=== PATIENT | male | born 1950 | race Caucasian/White ===

== ENCOUNTER 2017-09-14 09:02 | Inpatient (IN) | payer MEDICARE ==
[~2017-09-14] VITALS: Ht 185.4 cm; Wt 144.8 kg
[2017-11-29] VITALS (12 sets, daily range): BP systolic 130–180; BP diastolic 40–81; PULSE 36–61; TEMP 97.6–98.6
[2017-11-29] MEDS ORDERED: ASPI325T6 PO (06:06)
[2017-11-29] MEDS ORDERED: LASIX 40MG TABL40 MG PO (06:09)
[2017-11-29] MEDS ORDERED: XARELTO20 MG PO (06:09)
[2017-11-29] MEDS ORDERED: CORDARONE200 MG/TAB PO (06:09)
[2017-11-29] MEDS ORDERED: FLOMAX 0.40.4 MG/CAP PO (06:10)
[2017-11-29] MEDS ORDERED: LIPITOR 40MG TA40 MG PO (06:10)
[2017-11-29] MEDS ORDERED: VALSART/HCTZ TAB 160 PO (06:10)
[2017-11-29] MEDS ORDERED: FORT1000TA PO (06:11)
[2017-11-29] MEDS ORDERED: GLUCOTROL 5M5 MG/TAB PO (06:11)
[2017-11-29] MEDS ORDERED: POTASSIUM BICARB PO (06:12)
[2017-11-29] MEDS ORDERED: [UNRECOGNIZED DRUG - OTHER] PO (06:12)
[2017-11-29] MEDS ORDERED: ASPIRIN 32325 MG/TAB PO (06:12)
[2017-11-29] MEDS ORDERED: IBU800 M1 PO (06:13)
[2017-11-29] MEDS ORDERED: DIOVAN/HCT 12.51 TAB PO (06:16)
[2017-11-30] VITALS (8 sets, daily range): BP systolic 127–176; BP diastolic 57–86; PULSE 52–95; TEMP 98.2–99.5
[2017-11-30 06:43] LABS: HEMOGLOBIN 12.3 g/dl (13.5-18.0)
[2017-11-30 06:49] LABS: HEMATOCRIT 35.9 % (42.0-52.0)
[2017-12-01] VITALS (7 sets, daily range): BP systolic 90–151; BP diastolic 49–77; PULSE 63–125; TEMP 98.4–99.9
[2017-12-01 10:40] LABS: BASO % 0.2 % (0.0-2.0); EOS # 0.1 (0.0-0.7); EOS % 0.9 % (0-4.0); GRAN # 9.1 (1.4-6.5); GRAN % 80.7 % (42.2-75.2); HEMOGLOBIN 12.9 g/dl (13.5-18.0); LYMPH # 1.2 (1.2-3.4); LYMPH % 10.8 % (20.0-51.0); MEAN CELL VOLUME 93 fl (80.0-100.0); MEAN CORPUSCULAR HEMOGLOBIN 33 pg (27.0-31.0); MEAN CORPUSCULAR HGB CONC 35 g/dl (33.0-37.0); MEAN PLATELET VOLUME 9.1 fl (7.4-10.4); MONO # 0.8 (0.1-0.6); PLATELET COUNT 210 K/mm3 (130-400); RED BLOOD COUNT 3.95 M/mm3 (4.20-5.60); REDCELL DISTRIBUTION WIDTH-CV 13.2 % (11.5-14.5)
[2017-12-01 10:41] LABS: HEMATOCRIT 36.9 % (42.0-52.0)
[2017-12-01 10:49] LABS: CALCIUM 8.7 mg/dL (8.4-10.2); CREATININE, serum 0.89 mg/dL (0.66-1.25); MAGNESIUM 1.7 mg/dL (1.6-2.3); POTASSIUM 3.3 mmol/L (3.4-5.0)
[2017-12-02 03:42] VITALS: BP 135/44; PULSE 71; TEMP 98.9
[2017-12-02 06:39] LABS: BASO % 0.3 % (0.0-2.0); EOS # 0.3 (0.0-0.7); EOS % 2.6 % (0-4.0); GRAN % 76.7 % (42.2-75.2); HEMOGLOBIN 11.6 g/dl (13.5-18.0); LYMPH # 1.3 (1.2-3.4); LYMPH % 12.2 % (20.0-51.0); MEAN CELL VOLUME 95 fl (80.0-100.0); MEAN CORPUSCULAR HEMOGLOBIN 32 pg (27.0-31.0); MEAN CORPUSCULAR HGB CONC 34 g/dl (33.0-37.0); MEAN PLATELET VOLUME 9.5 fl (7.4-10.4); MONO # 0.8 (0.1-0.6); MONO % 7.7 % (1.7-9.3); PLATELET COUNT 214 K/mm3 (130-400); RED BLOOD COUNT 3.59 M/mm3 (4.20-5.60); REDCELL DISTRIBUTION WIDTH-CV 13.2 % (11.5-14.5)
[2017-12-02 06:43] LABS: HEMATOCRIT 34.2 % (42.0-52.0)
[2017-12-02 07:01] LABS: CALCIUM 8.5 mg/dL (8.4-10.2); CREATININE, serum 0.89 mg/dL (0.66-1.25); MAGNESIUM 1.9 mg/dL (1.6-2.3); POTASSIUM 3.3 mmol/L (3.4-5.0)
[2017-12-02 07:44] VITALS: BP 141/60; PULSE 75; TEMP 99.7
[2017-12-02] MEDS ORDERED: DIOVAN 160MG160 MG PO (09:41)
[2017-12-02] MEDS ORDERED: K-DUR20 MEQ PO (09:42)
== END 2017-12-02 11:53 | disposition home or self-care (01) | DRG 470 ==
LOC: JCC 11-29 05:05
PROVIDERS: Orthopaedic Surgery; Physician Assistant
PROC: 0SRC0J9 Replacement of Right Knee Joint with Synthetic Substitute, Cemented, Open Approach (ICD-10-PCS; principal; 2017-11-29 07:30)
DX: M17.11 Unilateral primary osteoarthritis, right knee (principal); Z68.41 Body mass index [BMI] 40.0-44.9, adult; E66.01 Morbid (severe) obesity due to excess calories; E87.6 Hypokalemia; I48.91 Unspecified atrial fibrillation; E11.9 Type 2 diabetes mellitus without complications; E78.5 Hyperlipidemia, unspecified; I10 Essential (primary) hypertension; Z79.01 Long term (current) use of anticoagulants
CPT/HCPCS: 99223-AI; 99232-AI; A9284; C1713; C1776; J0690; J2250; J2704; J3260; J3475; J7030

== ENCOUNTER → 2017-11-22 | Outpatient (CLI) | payer MEDICARE ==
[2017-11-22 13:45] LABS: HIV 1/2 Antibodies Non-Reactive; HIV-1p24 Antigen Non-Reactive
== END ==
LOC: COL.LAB 12:14
PROVIDERS: Orthopaedic Surgery
DX: Z01.812 Encounter for preprocedural laboratory examination (principal); M17.11 Unilateral primary osteoarthritis, right knee

== ENCOUNTER 2018-04-22 12:04 | Inpatient (IN) | payer MEDICARE ==
[~2018-04-22] VITALS: Ht 185.4 cm; Wt 142.8 kg
[~2018-04-22 12:04] MED LIST: ASPI325T6 PO; ASPIRIN 32325 MG/TAB PO; CORDARONE200 MG/TAB PO; DIOVAN 160MG160 MG PO; DIOVAN/HCT 12.51 TAB PO; FLOMAX 0.40.4 MG/CAP PO; FORT1000TA PO; GLUCOTROL 5M5 MG/TAB PO; IBU800 M1 PO; K-DUR20 MEQ PO; LASIX 40MG TABL40 MG PO; LIPITOR 40MG TA40 MG PO; POTASSIUM BICARB PO; VALSART/HCTZ TAB 160 PO; XARELTO20 MG PO; [UNRECOGNIZED DRUG - OTHER] PO
[2018-07-04] MEDS ORDERED: K-DUR20 MEQ PO (08:32)
[2018-07-04] MEDS ORDERED: DIOVAN 160MG160 MG PO (08:34)
[2018-07-04] MEDS ORDERED: IBU800 M1 PO (08:38)
[2018-07-04] MEDS ORDERED: NITROSTAT0.4 MG/TAB SL (11:47)
[2018-07-04] MEDS ORDERED: ASPIRIN 81M81 MG/TA2 PO (11:48)
[2018-12-06] VITALS (11 sets, daily range): BP systolic 131–169; BP diastolic 59–79; PULSE 56–82; TEMP 97.6–98.6
[2018-12-06] MEDS ORDERED: AMOXICILLIN 8751 TAB PO (05:58)
[2018-12-06] MEDS ORDERED: COZAAR100 MG PO (06:00)
[2018-12-06] MEDS ORDERED: COREG 6.256.25 MG/TA PO (06:02)
--- NOTE | 2018-12-06 10:45 | NUR ---
PATIENT BACK IN ROOM 332 POST OP. A&O. VSS. DENIES PAIN. PATIENT IS UNABLE TO MOVE BLE. LTK DRESSING IS CD&I WITH AQUACEL AND CRYCUFF INPLACE. TEDS TO BLE. POSITIVE +1 PEDAL PULSES TO BLE. PATIENT HAS CHRONIC POOR BLE PERIPHERAL VASCULAR CIRCULATION. BLE NOTED +3 EDEMA AND WITH PURPLE DISCOLORATION. AMATO TO DEPENDENT DRAINAGE WITH SMALL AMOUNTS OF CLEAR YELLOW URINE. IV FLUIDS INFUSING VIA PUMP INTO LEFT HAND IV. NO C/O N/V. LIQUIDS AT BEDSIDE. HEAD TO TOE ASSESSMENT WNL. NO OTHER NEEDS. AT BEDSIDE. CALL LIGHT IN REACH.
--- NOTE | 2018-12-06 13:21 | NUR ---
SARA met with the patient and patient's , Blank, to discuss discharge plan. The patient lives in [place] with his . He reports independence with ADLs and has a walker. The patient's PCP is Dr. Angel Olivas and he receives his medications at [facility] in [place]. He reports no difficulties obtaining his meds. The patient does not have advanced directives in EMR, but his states that he does have them completed and that [facility] should have a copy. SARA contacted [facility] and requested a copy. The patient plans to return home with his and receive outpatient therapy at [facility] upon discharge. No additional needs at this time.
--- NOTE | 2018-12-06 21:15 | NUR ---
Pt. sitting up in bed at this time. Pt. is A&XO3, assessment complete. IV to the lt. hand patent, IV fluids infusing per orders. Dressing to lt. knee CDI. SCD's, teds, and cryocuff to lt. knee. Pt. reports pain at a 5 on pain scale, Would like pain meds with evening meds. Will give per orders. Pt. denies further needs at this time. Call light within reach.
[2018-12-07] VITALS (7 sets, daily range): BP systolic 151–171; BP diastolic 69–79; PULSE 56–98; TEMP 97.8–98.5
[2018-12-07 06:29] LABS: HEMATOCRIT 37.1 % (42.0-52.0); HEMOGLOBIN 12.6 g/dl (13.5-18.0)
--- NOTE | 2018-12-07 06:45 | NUR ---
awake resting in bed, bedside shift report received from DALLIN Xavier
--- NOTE | 2018-12-07 08:00 | NUR ---
resting in bed, full assessment completed, see interventions for further info, has had breakfast and tolerated well, denies needs
[2018-12-07] MEDS ORDERED: XARELTO10 MG PO (08:19)
[2018-12-07] MEDS ORDERED: NORCO 325 MG-7.1 TAB PO (08:20)
[2018-12-07] MEDS ORDERED: ULTRAM 50MG TAB50 MG PO (08:20)
--- NOTE | 2018-12-07 09:40 | NUR ---
sitting up in chair, physical therapy was in and worked with patient and ambulated in orr and then back to room and in in recliner
--- NOTE | 2018-12-07 11:00 | NUR ---
remains up in chair, denies needs
--- NOTE | 2018-12-07 11:30 | NUR ---
had lunch before blood sugar taken, blood sugar was 528, SARY Julio notified
--- NOTE | 2018-12-07 12:45 | NUR ---
remains up in chair watching TV
--- NOTE | 2018-12-07 13:04 | NUR ---
ambulated out to orr with physical therapy for group exercises
--- NOTE | 2018-12-07 13:40 | NUR ---
ambulated back to room after therapy and into bed to rest, left leg elevated above level of heart with ice to knee
--- NOTE | 2018-12-07 14:40 | NUR ---
appears to be sleeping, in bed with eyes closed, resp quiet and easy
--- NOTE | 2018-12-07 16:50 | NUR ---
now c/o pain 10/19 and medicated with hydrocodone 7.5mg 2 tabs, visiting with
--- NOTE | 2018-12-07 18:53 | NUR ---
bedside shift report given to DALLIN Aragon
--- NOTE | 2018-12-07 20:00 | NUR ---
REPORT RECEIVED. 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 ASSESSMENT COMPLETE. VS STABLE. DENIES PAIN AT THIS TIME-STATES HE WILL CALL IF HE NEEDS. NEW ICE PACK APPLIED-ELEVATED ON PILLOW WITH KNEE STRAIGHT. AQUACELL DRESSING TO LEFT KNEE WITH OLD DRAINAGE PRESENT. AMBULATED IN HALLWAY WITH ASSISTANT PLANT CONTROLLER APPROX 150 FEET. TOLERATED WELL. WILL MONITOR.
[2018-12-08 03:54] VITALS: BP 150/72; PULSE 55; TEMP 98.5
--- NOTE | 2018-12-08 06:49 | NUR ---
awake and up in chair, bedside shift report received from DALLIN Aragon
--- NOTE | 2018-12-08 07:40 | NUR ---
remains up in chair and has had breakfst, full assessment completed, see interventions for further info, right leg has some scab area on salas
[2018-12-08 08:04] VITALS: BP 149/69; PULSE 51; TEMP 97.7
--- NOTE | 2018-12-08 10:07 | NUR ---
ambulated back to room after therapy and remains up in recliner
[2018-12-08] MEDS ORDERED: COREG 6.256.25 MG/TA PO (10:53)
--- NOTE | 2018-12-08 11:22 | NUR ---
resting in chair, aquacel dressing removed and incision with annita and intact, cleaned with betadine and new aquacel placed
--- NOTE | 2018-12-08 11:53 | NUR ---
First visit from the drawing frame tender. No needs right now.
[2018-12-08 12:30] VITALS: BP 148/73; PULSE 52; TEMP 98
--- NOTE | 2018-12-08 12:40 | NUR ---
here and patient is ready for discharge, discharge instructions given to he and his to include use of leg bag for catheter, both verbalize understanding,
--- NOTE | 2018-12-08 12:54 | NUR ---
medicated with hydrocodone 7.5mg 2 tabs
--- NOTE | 2018-12-08 13:00 | NUR ---
discharged per WC
== END 2018-12-08 13:00 | disposition home or self-care (01) | DRG 470 ==
LOC: JCC 06-29 07:30
PROVIDERS: Urology; ADMIT Orthopaedic Surgery
PROC: 0SRD0J9 Replacement of Left Knee Joint with Synthetic Substitute, Cemented, Open Approach (ICD-10-PCS; principal; 2018-12-06 07:30)
PROC: 0T7D7ZZ Dilation of Urethra, Via Natural or Artificial Opening (ICD-10-PCS; 2018-12-06 07:30)
DX: M17.12 Unilateral primary osteoarthritis, left knee (principal); Z68.41 Body mass index [BMI] 40.0-44.9, adult; M10.9 Gout, unspecified; I10 Essential (primary) hypertension; E78.00 Pure hypercholesterolemia, unspecified; Z96.651 Presence of right artificial knee joint; I87.2 Venous insufficiency (chronic) (peripheral); E66.01 Morbid (severe) obesity due to excess calories; L90.0 Lichen sclerosus et atrophicus; E78.5 Hyperlipidemia, unspecified; N40.0 Benign prostatic hyperplasia without lower urinary tract symptoms; I87.8 Other specified disorders of veins; N35.911 Unspecified urethral stricture, male, meatal; I48.91 Unspecified atrial fibrillation; N47.1 Phimosis; E11.9 Type 2 diabetes mellitus without complications; Z79.82 Long term (current) use of aspirin; Z79.01 Long term (current) use of anticoagulants
CPT/HCPCS: 99222; A4314; A9284; C1769; C1776; C1894; J0690; J1100; J1815; J2250; J2405; J2704; J3010; J3370; J7030

== ENCOUNTER → 2018-06-22 | Outpatient (CLI) | payer MEDICARE ==
[2018-06-22 16:16] LABS: HIV 1/2 Antibodies Non-Reactive; HIV-1p24 Antigen Non-Reactive
== END ==
LOC: COL.LAB 15:09
PROVIDERS: Orthopaedic Surgery
DX: Z01.812 Encounter for preprocedural laboratory examination (principal); M17.12 Unilateral primary osteoarthritis, left knee